=== PATIENT | female | born 1995 ===

== ENCOUNTER 2020-12-20 07:10 | Emergency (ER) | payer OTHER, SELFPAY ==
[2020-12-20 07:18] VITALS: BP 146/95; PULSE 105; RESP 16; TEMP 37.4; O2SAT 96
--- NOTE | 2020-12-20 07:33 | ED.EAR ---
HPI - Ear Problem General Chief complaint: Ear Stated complaint: L Ear Pain Time Seen by Provider: 12/20/20 07:14 History of Present Illness HPI Narrative: Patient is a 25-year-old female who presents ER with left ear pain for the last day. Associate with decreased hearing and referred pain into her jaw. She has not been swimming in any freshwater water sources. No fevers or chills or sweats. No alleviating factors. Related Data Home Medications Medication Instructions Recorded Confirmed multivitamin 1 tablet PO DAILY 06/23/20 Allergies Allergy/AdvReac Type Severity Reaction Status Date / Time No Known Allergies Allergy Mild Verified 12/20/20 07:22 Review of Systems Constitutional: Constitutional: Denies chills and Denies fever(s) ENT: Denies nasal congestion and Denies sore throat Comments: Ear pain, decreased hearing PMFSH Past Medical History Medical History (Updated 12/20/20 @ 07:38 by Jorge Connelly MD) History of chlamydia Surgical History Surgical History (Updated 12/20/20 @ 07:35 by Jorge Connelly MD) No pertinent past surgical history Family History Family History Mother Family history of obesity Family history of migraine headaches Hypertension Family history of allergic disorder Father Diabetes mellitus Social History Social History (Updated 06/23/20 @ 12:48 by Carolina Donis MA) Social History: Single Smoking status: Former smoker Tobacco type: cigarettes Second hand tobacco smoke exposure: No Smoking end date: 04/14/13 Additional smoking assessment comments: Pt is a social smoker Alcohol intake: current Alcohol use details: Once or twice a month Substance use: never Substance use type: does not use Gender identity (if verbalized by the patient): Female Sexual Orientation (if Verbalized by the Patient): Straight or Heterosexual Exam Narrative: GENERAL: Well-appearing, well-nourished, and in no acute distress. HEAD: Normocephalic, atraumatic. ENT: Mucous membranes moist. Normal-appearing posterior oropharynx. Right TM normal with normal-appearing ear canal. Left ear canal edematous and red and preventing direct visualization of the tympanic membrane. No drainage noted. NECK: Supple. NEURO: Alert and oriented x3. PSYCH: Normal mood and affect. Course Course Emergency Course: Discussed treatment plan. Discharge home. Vital Signs Vital signs: Vital Signs Temperature 99.3 F 12/20/20 07:18 Pulse Rate 105 H 12/20/20 07:18 Respiratory Rate 16 12/20/20 07:18 Blood Pressure 146/95 H 12/20/20 07:18 Pulse Oximetry 96 12/20/20 07:18 Temperature 99.3 F 12/20/20 07:18 Pulse Rate 105 H 12/20/20 07:18 Respiratory Rate 16 12/20/20 07:18 Blood Pressure 146/95 H 12/20/20 07:18 Pulse Oximetry 96 12/20/20 07:18 Medical Decision Making Vital Signs Vital Signs: Vital Signs Temperature 99.3 F 12/20/20 07:18 Pulse Rate 105 H 12/20/20 07:18 Respiratory Rate 16 12/20/20 07:18 Blood Pressure 146/95 H 12/20/20 07:18 Pulse Oximetry 96 12/20/20 07:18 Temperature 99.3 F 12/20/20 07:18 Pulse Rate 105 H 12/20/20 07:18 Respiratory Rate 16 12/20/20 07:18 Blood Pressure 146/95 H 12/20/20 07:18 Pulse Oximetry 96 12/20/20 07:18 Discharge Plan Discharge Clinical Impression: Otitis externa Patient Disposition: Home, Self-Care Condition: Stable Instructions: Baljeet's Ear (ED) Additional Instructions: Return the ER if you have worsening pain, you have redness and swelling over the backside of your ear and skull, or you have additional concerns. Prescriptions: New ciprofloxacin-dexamethasone [Ciprodex] 0.3-0.1 % drops,suspension 4 drp LEFT EAR Q12H 7 Days Qty: 7.5 RF: 0 hydrocodone-acetaminophen 5-325 mg tablet 1 tablet PO Q6H PRN (Reason: pain) Qty: 20 RF: 0 No Action multivitamin [
[2020-12-20] MEDS: HYDROcodone/acetaminophen (*CRX) 5-325 MG TABLET 1 TAB PO (07:59)
== END 2020-12-20 08:03 | disposition home or self-care (01) ==
PROVIDERS: Emergency Provider Emergency Medicine; PCP Family Medicine
DX: H60.92 Unspecified otitis externa, left ear (principal); Z87.891 Personal history of nicotine dependence; Z86.19 Personal history of other infectious and parasitic diseases
CPT/HCPCS: 99283; A9270